=== PATIENT | female | born 1980 | race Caucasian/White ===

== ENCOUNTER → 2016-10-07 | Day surgery (SDC) | payer OTHER ==
[~2016-10-07] MED LIST: CYMBALTA PO; FLEXERIL10 MG PO; FLONASE 0.05% N16 G1; IBUPROFEN PO; LORTAB 10-3251 EACH PO; LORTAB 10/500 T1 TAB PO; LORTAB 7.5-5001 TAB; MULTIVITAMIN; NATURE THROID PO; PAXIL PO; PRENATAL MULITV1 TAB PO; ROBAXIN PO; SYNTHROID; SYNTHROID PO; ZYRTEC10 M1 PO
--- NOTE | ~2016-10-07 | OR ---
Unit #: [id number] #: [id number] Patient: ODILON HUTCHINS [id number] [address] [address] [id number] O MR#: [id number] NAME: ODILON HUTCHINS ROOM: Date of Procedure: 10/07/2016 Admission Date: 10/07/2016 Surgeon: Gavino Blanco M.D. : 1980 Attending Physician: Gavino Blanco M.D. Primary Care Physician: Primary Care Physician No OPERATIVE REPORT PREOPERATIVE DIAGNOSES 1. Herniated nucleus pulposus. 2. Radiculopathy. 3. Back pain. POSTOPERATIVE DIAGNOSES 1. Herniated nucleus pulposus. 2. Radiculopathy. 3. Back pain. PROCEDURE PERFORMED Lumbar epidural steroid injection with intravenous sedation and fluoroscopic guidance for needle localization. INDICATIONS FOR PROCEDURE The patient is a 36-year-old female with return of left lower extremity greater than back pain. She has known left-sided L5-S1 disk herniation. She has been treated with p.r.n. epidural steroid injections. Last was done 7 months ago. She did well until just recently. The left leg pain has returned. Plan is to repeat an injection based on history, pathology, symptomatology, and response to treatment. DESCRIPTION OF PROCEDURE The patient was placed in a seated position. Standard monitors were applied. 2 mg of Versed were given for sedation and anxiolysis, which was adequate. Vital signs remained stable. Sterile prep and drape then of lumbar area was performed. The skin then at the L5-S1 level was localized with 1% lidocaine. An 18-gauge Pinion.ggtead needle was then advanced via loss of resistance technique and fluoroscopic guidance in toward the epidural space. After confirming proper positioning with fluoroscopy and radiographic contrast, 80 mg of Depo-Medrol and 4 mL of 0.125% bupivacaine were deposited. The patient tolerated this part of procedure well and was discharged to recovery room in stable condition. Dictated by... Gavino Blanco M.D. LHP/modl TD: 10/07/2016 22:40 Unit #: [id number] #: [id number] Patient: ODILON HUTCHINS JOB #: [id number] OPERATIVE REPORT Page 1 of 1 X Gavino Blanco MD X PROCEDURE OPERATIVE NOTE
== END | disposition home or self-care (01) ==
LOC: CCSC 09:57
DX: M51.16 Intervertebral disc disorders with radiculopathy, lumbar region (principal)
CPT/HCPCS: J1040; J2250